=== PATIENT | male | born 1970 | race Caucasian/White ===

== ENCOUNTER 2024-08-12 19:16 | Emergency (ER) | payer BC, OTHER ==
[2024-08-12] MEDS ORDERED: Lidocaine 2% 20 ML MDV INFILT ONE (19:17)
[2024-08-12 20:20] VITALS: BP 146/97; PULSE 86
== END 2024-08-12 20:23 | disposition home or self-care (01) ==
LOC: FB.ED 19:16
DX: S60.455A Superficial foreign body of left ring finger, initial encounter (principal); F17.210 Nicotine dependence, cigarettes, uncomplicated; W45.8XXA Other foreign body or object entering through skin, initial encounter; Y93.89 Activity, other specified
CPT/HCPCS: 99283; J2003

== ENCOUNTER 2024-09-20 00:33 | Emergency (ER) | payer OTHER ==
[2024-09-20] MEDS: Alum Hydroxide/Mag Hydroxide 15 ML, Lidocaine 2% 15 ML PO ONE (00:57)
[2024-09-20] MEDS: Ondansetron 4 MG Tab.DIS PO STA (00:57)
[2024-09-20] MEDS: Aluminum Hydroxide/Magnesium Hydroxide Susp 30 ML Cup PO STA (01:08)
[2024-09-20] MEDS: Prochlorperazine 10 MG/2 ML SDV IVPUSH ONE (01:08)
[2024-09-20 01:36] LABS: BASOPHILS ABSOLUTE AUTO 0.0 x10-3/uL (0.0-0.3); BASOPHILS PERCENT AUTO 0.5 % (0.3-3.8); EOSINOPHILS ABSOLUTE AUTO 0.4 x10-3/uL (0.0-0.6); EOSINOPHILS PERCENT AUTO 4.3 % (0.1-6.8); LYMPHOCYTES ABSOLUTE AUTO 4.0 x10-3/uL (0.5-4.5); LYMPHOCYTES PERCENT AUTO 43.6 % (15.8-45.3); MEAN PLATELET VOLUME 7.8 fL (6.7-11.0); MONOCYTES ABSOLUTE AUTO 0.7 x10-3/uL (0.0-1.2); MONOCYTES PERCENT AUTO 8.0 % (5.5-15.2); NEUTROPHILS ABSOLUTE AUTO 4.0 x10-3/uL (1.7-6.9); NEUTROPHILS PERCENT AUTO 43.7 % (40.3-71.8); PLATELET COUNT,PLT 284 x10(3)uL (117-477); RED BLOOD CELL COUNT 5.62 x10(6)uL (3.90-5.90); RED CELL DISTRIBUTION WIDTH 14.0 % (12.4-15.0); WHITE BLOOD CELL COUNT,WBC 9.2 x10-3/uL (3.2-10.1)
[2024-09-20 01:50] LABS: A/G RATIO 1.1; ALANINE AMINOTRANSFERASE,ALT 28 U/L (12-36); ASPARTATE AMNIOTRANSFERASE,AST 19 IU/L (5-25); BILIRUBIN TOTAL 0.5 mg/dL (0.1-1.3); ESTIMATED GFR 71 mL/min (>60); PROTEIN TOTAL,TP 7.2 g/dL (6.0-8.0)
[2024-09-20 02:10] LABS: BLOOD UREA NITROGEN,BUN 13 mg/dL (7-18); CARBON DIOXIDE,CO2 27 mmol/L (21-32); CHLORIDE,CL 103 mmol/L (100-110); CREATININE 1.2 mg/dL (0.70-1.30); GLUCOSE RANDOM 119 mg/dL (80-116); POTASSIUM,K 3.2 mmol/L (3.5-5.3); SODIUM,NA 141 mmol/L (135-145)
[2024-09-20 02:50] VITALS: BP 149/90; PULSE 62
== END 2024-09-20 02:50 | disposition home or self-care (01) ==
LOC: FB.ED 00:33
DX: K21.9 Gastro-esophageal reflux disease without esophagitis (principal); F17.210 Nicotine dependence, cigarettes, uncomplicated; Z79.899 Other long term (current) drug therapy
CPT/HCPCS: 36415; 80053; 83690; 85025; 96361; 96374; 96375; 99284; A9270; J0780; J2470; J7030; Q0162